=== PATIENT | female | born 1995 ===

== ENCOUNTER 2016-08-09 06:08 | Inpatient (IN) | payer OTHER ==
[2016-08-09] MEDS ORDERED: Penicillin G 5 Million Unit Vial IVPB ONE ×2 (06:44→07:38)
[2016-08-09] MEDS ORDERED: Lactated Ringer's 1,000 ML IV SCH (06:45)
--- NOTE | 2016-08-09 06:51 | OBHP ---
Datetime: 08/09/2016 06:41 IP Adm Impression: Term, intrauterine IP Adm Impression Other: early labor IP Admit Plan: Admit to unit; Initiate labor protocol Admit Comment, IP Provider: chief complaint -contractions HPI 20 y/o at 38.6 wga , with c/o contractions since 3 am.Patient reports noticing some blood mixed with mucous also.Denies loss of fluid.Patient denies nausea, vomiting, headache, chest pain, s hortness of breath, numbness or tingling in hands and feet course uncomplicated as per atient; care with dr CORTES PMH denies PSH denies OBGYN HX Social hx denies tobacco,alcohol or illcit drug use Exam see exam section A/P 22 y/o at 38.6 wga in labor,GBS positive -admit -see orders Pelvic Type - PN: Adequate Extremities - PN: Normal Abdomen - PN: Normal Back - PN: Normal Lungs - PN: Normal Heart - PN: Normal Neurologic - PN: Normal General - PN: Normal Weight - Estimated: 3200 Presentation-Admit: Vertex Contraction Comments Provider: irregular Gestation - Est Wks by US: 38.6 IP Hx Assessment: The History has been Reviewed and is Current EGA AdmitDate IP: 38.6 Vital Signs Provider: Reviewed; Within Normal Limits IP Chief Complaint: Uterine contractions FHR Category Provider Fetus A: Category I Dilatation, Provider: 1 Effacement, Provider: 70 Station, Provider: -1 Genitourinary Exam: Normal DTRs - PN: Normal
--- NOTE | 2016-08-09 07:38 | OBADHP ---
Datetime: 08/09/2016 07:35 IP Adm Impression Other: labor Admit Comment, IP Provider: at 38.6weeks came with ctxs started at 3 am, q 6 min, 8/10 and loss of mucus plug with blood, no lof,+fm. pt is in pain. obhx primi pmh denies med pnv all nkda psh den nicole de ve /-2 a/p at 38.6weeks in early labor/pain admit to l_d npo/ivf labs cont toco amnd efm bs prophylaxsis anticipate Pelvic Type - PN: Adequate Extremities - PN: Normal Abdomen - PN: Normal Back - PN: Normal Breast - PN: Normal Lungs - PN: Normal Heart - PN: Normal Thyroid - PN: Normal Neurologic - PN: Normal HEENT - PN: Normal General - PN: Normal FHR - Baseline A Provider: 140 Contraction Comments Provider: q5-8 Vital Signs Provider: Reviewed; Within Normal Limits IP Chief Complaint: Uterine contractions NICHD Variability Prov Fetus A: Moderate 6-25bpm NICHD Accel Fetus A IP Provider: 15X15 FHR Category Provider Fetus A: Category I Dilatation, Provider: 1 Effacement, Provider: 70 Station, Provider: -1 Genitourinary Exam: Normal DTRs - PN: Normal EGA AdmitDate IP: 38.6 IP Adm Impression: Term, intrauterine IP Admit Plan: Admit to unit; Initiate labor protocol
[2016-08-09 07:51] LABS: BASO # 0.1 K/uL (0.0-0.2); BASO % 0.6 % (0.0-2.0); EOS % 0.3 % (0.0-4.0); HEMATOCRIT 35.6 % (34.0-47.0); LYMPH # 2.2 K/uL (1.0-4.3); LYMPH % 16.1 % (20.0-40.0); MEAN CELL VOLUME 69.3 fL (81.0-99.0); MEAN CORPUSCULAR HGB CONC 31.8 g/dL (33.0-37.0); MEAN PLATELET VOLUME 8.1 fL (7.2-11.7); MONO # 0.7 K/uL (0.0-0.8); MONO % 4.7 % (0.0-10.0); RED CELL DISTRIBUTION WIDTH 15.8 % (11.5-14.5); WHITE BLOOD COUNT 13.7 K/uL (4.8-10.8)
[2016-08-09 07:59] LABS: CHLORIDE 102 mmol/L (98-107)
[2016-08-09 08:00] LABS: POTASSIUM 4.1 mmol/L (3.6-5.2); SODIUM 136 mmol/L (132-148)
[2016-08-09 08:02] LABS: ALKALINE PHOSPHATASE 225 U/L (38-126); AST/SGOT 27 U/L (14-36); BILIRUBIN,TOTAL 0.3 mg/dL (0.2-1.3); BLOOD UREA NITROGEN 10 mg/dL (7-17); CARBON DIOXIDE 22 mmol/L (22-30); GFR AFRICAN-AMERICAN > 60; GLUCOSE,RANDOM 79 mg/dL (65-105)
[2016-08-09 08:03] LABS: ALT/SGPT 21 U/L (9-52); CALCIUM 9.2 mg/dl (8.6-10.4)
[2016-08-09 08:04] LABS: URINE BILIRUBIN NEGATIVE (NEGATIVE); URINE BLOOD 2+ (NEGATIVE); URINE GLUCOSE (UA) NORMAL (Normal); URINE KETONE NEGATIVE (NEGATIVE); URINE LEUKOCYTE ESTERASE NEG Leu/uL (Negative); URINE PROTEIN NEGATIVE (NEGATIVE); URINE UROBILINOGEN NORMAL mg/dL (0.2-1.0); WBC URINE 1 /hpf (0-5)
[2016-08-09 08:05] LABS: URINE COLOR YELLOW (YELLOW)
[2016-08-09 08:06] LABS: RBC URINE 3 /hpf (0-3)
[2016-08-09] MEDS ORDERED: Nalbuphine 20 mg/ml Inj (1 ml) IVP PRN (08:30)
[2016-08-09] MEDS ORDERED: Nalbuphine 20 mg/ml Inj (1 ml) ONE (10:36)
[2016-08-09] MEDS ORDERED: Bupivacaine 0.125%/FentaNYL 200 ML EPI ONE (13:10)
--- NOTE | 2016-08-09 16:12 | OBPN ---
Datetime: 08/09/2016 16:09 IP Progress Impression: Normal progression of labor IP Procedures: Artificial ROM; Sterile Vag Exam FHR - Baseline A Provider: 130 IP Progress Note Comment: PT WAS EXAMINED AT BED SIDE VE 6/100/0 AROM CLEAR ANTICIPATE Vital Signs Provider: Reviewed; Within Normal Limits NICHD Accel Fetus A IP Provider: 15X15 FHR Category Provider Fetus A: Category I NICHD Variability Prov Fetus A: Moderate 6-25bpm Dilatation, Provider: 6 Effacement, Provider: 100 Station, Provider: 0 Datetime: 08/09/2016 07:35 IP Informed Consent Obtain: Vaginal Delivery Contraction Comments Provider: q5-8 Datetime: 08/09/2016 06:41 Gestation - Est Wks by US: 38.6 Weight - Estimated: 3200 Presentation-Admit: Vertex
[2016-08-09] MEDS ORDERED: Oxytocin 20 units in LR 2,000 ML IV ONE (16:28)
[2016-08-09] MEDS ORDERED: Oxycodone/Acetaminophen 5/325 mg Tab PO PRN (18:24)
--- NOTE | 2016-08-09 18:28 | OBPN ---
Datetime: 08/09/2016 18:26 IP Progress Impression: Normal progression of labor IP Procedures: Sterile Vag Exam IP Progress Plan: Continue present management Contraction Comments Provider: q1-4 FHR - Baseline A Provider: 130 IP Progress Note Comment: pt was examined at bed side ve 9/100/0 anticipate Vital Signs Provider: Reviewed; Within Normal Limits NICHD Accel Fetus A IP Provider: 15X15 FHR Category Provider Fetus A: Category I NICHD Variability Prov Fetus A: Moderate 6-25bpm Dilatation, Provider: 9 Effacement, Provider: 100 Station, Provider: 0
[2016-08-09] MEDS ORDERED: Oxytocin 30 UNIT 1,000 ML IV SCH (18:30)
--- NOTE | 2016-08-09 20:05 | OBDS ---
MATERNAL INFORMATION Estimated Blood Loss (ml): 200 Provider Comments: baby deliverd in [place]. cord arround the neck x 2 . clamped and cut. endometrium clean. no co. 9/9 placente to pathology LABOR SUMMARY EDC: 08/17/2016 00:00 LABOR INFORMATION Onset of Labor: 08/09/2016 03:30 Cervical Ripening Agents: Cytotec @ 50 Group B Beta Strep: Positive MEMBRANES Membranes Rupture Method: Artificial Amniotic Fluid Color: Clear Amniotic Fluid Amount: Small STAGES OF LABOR Stage 3 hrs: 0 Stage 3 min: 2 Total Time in Labor hrs: 16 Total Time in Labor min: 22 VAGINAL DELIVERY Laceration Extension: First Degree Laceration Type: Vaginal Laceration Repair Note: repaired with 3 chromic Sponge Count Correct: Yes Sharps Count Correct: Yes BABY A INFORMATION Infant Delivery Date/Time: 08/09/2016 19:50 Method of Delivery: Vaginal Born in Route : No : N/A Forceps: N/A Vacuum Extraction: N/A Shoulder Dystocia : No SHOULDER DYSTOCIA BABY A Infant Delivery Date/Time: 08/09/2016 19:50 PRESENTATION/POSITION BABY A Presentation: Cephalic Cephalic Presentation: Vertex Vertex Position: Left Occipital Anterior Breech Presentation: N/A PLACENTA INFORMATION BABY A Placenta Delivery Time : 08/09/2016 19:52 Placenta Method of Delivery: Spontaneous Placenta Status: Delivered INFANT INFORMATION BABY A Gestational Age at Delivery: 38.6 Gestational Status: Term Outcome : Liveborn Infant Condition : Stable Infant Sex: Female IDENTIFICATION/MEDS BABY A ID Band Number: [id number] Sensor Applied: Yes Sensor Number: [id number] Sensor Location : Cord Clamp CORD INFORMATION BABY A Nuchal Cord : Around Neck x2, Tight
[2016-08-09] MEDS: Benzocaine/Menthol 20%-0.5% Topical Spray (60 ml) TOP PRN ×2 (22:53→22:55)
[2016-08-10 00:18] VITALS: RESP 20
--- NOTE | 2016-08-10 06:16 | OBPPN ---
Datetime: 08/10/2016 06:13 PP Pain Prov: Within normal limits PP Nausea Prov: Denies PP Flatus Prov: Yes PP Abdomen/Uterus Prov: Normal PP Lochia Prov: Normal PP Extremities Prov: Normal PP Comments Phys Exam Prov: fudus below umblicus ext no edema,no divina ten PP Impression Prov: Normal progression PP Plan Prov: Continue present management PP Progress Note Prov: pt was seen at bed side, pain under control, no n/v, tolerating deit, voiding ,mi ochia ppd#1 s/p cbc reg deit cont pp care cont pain management Vital Signs Provider PP: Reviewed; Within Normal Limits
[2016-08-10 07:42] LABS: BASO # 0.1 K/uL (0.0-0.2); BASO % 0.3 % (0.0-2.0); EOS % 0.2 % (0.0-4.0); LYMPH # 2.7 K/uL (1.0-4.3); LYMPH % 15.3 % (20.0-40.0); MEAN CELL VOLUME 69.9 fL (81.0-99.0); MEAN CORPUSCULAR HEMOGLOBIN 21.3 pg (27.0-31.0); MEAN CORPUSCULAR HGB CONC 30.4 g/dL (33.0-37.0); MEAN PLATELET VOLUME 8.5 fL (7.2-11.7); MONO # 1.3 K/uL (0.0-0.8); MONO % 7.4 % (0.0-10.0); RED CELL DISTRIBUTION WIDTH 15.7 % (11.5-14.5); WHITE BLOOD COUNT 17.8 K/uL (4.8-10.8)
[2016-08-11 03:56] VITALS: O2SAT 100
--- NOTE | 2016-08-11 07:26 | OBPPN ---
Datetime: 08/11/2016 07:24 PP Pain Prov: Within normal limits PP Nausea Prov: Denies PP Flatus Prov: Yes PP Abdomen/Uterus Prov: Normal PP Lochia Prov: Normal PP Extremities Prov: Normal PP Comments Phys Exam Prov: fudus below umblicus ext no edema,no calf ten PP Impression Prov: Normal progression PP Plan Prov: Discharge PP Progress Note Prov: pt was seen at bed side, pain under control, no n/v, tolerating deit, voiding ,min lochi ppd#2s/p dc home no sex motrin prn f/u in 3weeeks Vital Signs Provider PP: Reviewed; Within Normal Limits
--- NOTE | 2016-08-11 07:28 | OBDCSUM ---
Datetime: 08/11/2016 07:26 Discharged to, Provider: Home Follow up at, Provider: 3week Disch Instr Activity: Normal activity Disch Instr Diet: Regular Discharge Diagnosis, Provider: Term Delivered Follow up in weeks, Provider: dr ribeiro office Disch Activity Restrictions: No lifting; No driving; Minimize walking; Minimize stair-climbing; No s exual activity; Nothing in vagina - [place], tampons, douche Discharge Comment, Provider: dc home no sex motrin prn f/u in 3weeeks Discharge Diagnosis Prov Other: s/p
[2016-08-11 08:05] VITALS: BP 110/76; PULSE 92; TEMP 97.8
== END 2016-08-11 12:30 | disposition home or self-care (01) | DRG 775 ==
LOC: C.EROB 06:08 → C.4D 06:48 → C.4M 21:47
PROVIDERS: ADMIT Specialist; ATTEND Specialist
PROC: 10E0XZZ Delivery of Products of Conception, External Approach (ICD-10-PCS; principal; 2016-08-09)
PROC: 0HQ9XZZ Repair Perineum Skin, External Approach (ICD-10-PCS; 2016-08-09)
DX: O69.1XX0 Labor and delivery complicated by cord around neck, with compression, not applicable or unspecified (principal); O99.824 Streptococcus B carrier state complicating childbirth; Z3A.38 38 weeks gestation of pregnancy; O70.0 First degree perineal laceration during delivery; Z37.0 Single live birth